=== PATIENT | male | born 1960 | race Caucasian/White ===

== ENCOUNTER 2016-09-06 10:56 | Inpatient (IN) ==
[2016-09-06] MEDS ORDERED: *HR* Midazolam HCl 2 MG/2 ML VIAL ONE ×3 (11:02→11:59)
--- NOTE | 2016-09-06 11:29 | History & Physical Report ---
Date of Encounter: 09/06/16 Time of Encounter: 11:29 24 Hour HP Update - Instructions Instructions: If the History and Physical is less than 30 days old and was completed prior to A.M. admission and or procedure and has NOT been updated on calendar day of procedure please complete this update prior to performing procedure. - Update Patient reports changes in Medical Condition: No Changes in examination, assessment, or condition: No Changes in Medication: No Preop tests/diagnostics Reviewed: Yes Surgery Remains Indicated: Yes Consent for Planned Operative Procedure(s) Verified: Yes - Pre-Operative Checklist Preoperative Checklist Indicated: No Prophylactic Antibiotic Ordered: Yes Is VTE Prophylaxis Indicated?: Yes
[2016-09-06] MEDS ORDERED: Ringers Solution, Lactated 1,000 ML IVC SCH ×2 (11:30→15:37)
[2016-09-06] MEDS ORDERED: Vancomycin 1,500 MG in D5% in Water 250 ML IVPB ONE (11:30)
--- NOTE | 2016-09-06 11:33 | Anesthesia Evaluation PreOp ---
Date of Encounter: 09/06/16 Time of Encounter: 11:31 - Past History Planned Operation: R total knee revision Cardiac History: HTN, Hyperlipidemia Pulmonary History: Denies Any Significant HX RECREATION ENGINEER History: Denies Any Significant HX Other Medical History: Other (gout) Anesthesia History: No Prior Anesthetic Complications Alcohol Use: none Drug use: none Medications and Allergies Allopurinol [Zyloprim 300 MG] 300 mg PO DAILY 02/29/16 [History] Aripiprazole [Abilify] 10 mg PO DAILY 02/29/16 [History] Atorvastatin Calcium 80 mg PO DAILY 02/29/16 [History] Buspirone HCl [Buspar] 15 mg PO TID 02/29/16 [History] Cholecalciferol (D-3) [Vitamin D] 1,000 unit PO DAILY 02/29/16 [History] Duloxetine HCl [Cymbalta] 60 mg PO DAILY 02/29/16 [History] Fenofibrate Nanocrystallized [Tricor] 48 mg PO DAILY 02/29/16 [History] Gabapentin [Neurontin] 800 mg PO TID 02/29/16 [History] Lisinopril [Zestril] 40 mg PO DAILY 02/29/16 [History] Loratadine [Allergy Relief] 10 mg PO DAILY 02/29/16 [History] Melatonin 10 mg PO HS 02/29/16 [History] Metoprolol Tartrate [Lopressor] 50 mg PO BID 02/29/16 [History] Mirtazapine [Remeron] 30 mg PO HS 02/29/16 [History] Multivitamin [Multi-Day Vitamins] 1 tab PO DAILY 02/29/16 [History] OxyCODONE Immed Rel [Roxicodone 5 MG] 5 mg PO Q6HR PRN #40 tablet 02/29/16 [Rx] OxyCODONE/APAP 5/325 [Percocet 5/325 MG] 1 each PO Q6HR PRN 02/29/16 [History] Vancomycin/0.9 % Sod Chloride [Vanco 1.5 gm/500 ml-0.9% NaCl] 1.5 gm IV Q12H 30 Days 02/29/16 [Rx] amLODIPine [Norvasc] 5 mg PO DAILY 02/29/16 [History] Allergies No Known Allergies Allergy (Verified 02/29/16 10:09) - Meds/Allergy Pre-op Review Medications Reviewed: Yes Allergies Reviewed: Yes Beta Blockers on Current Med List: Yes If Beta Blockers taken, Date/Time (Last Dose taken): 09-06-16 metoprolol 7:30 Anesthesia Results - Labs 09-04-16 Labs [facility] WBC 10.4 Hgb 12.9 Hct 39.5 Plt 371 INR 1.08 PT 11.7 PTT 28.5 Na 142 K 4.3 Cl 104 CO2 27.5 Glucose 110 Cr 1.03 Ca 9.7 - Imaging EKG: report reviewed, image reviewed (SR) Anesthesia Exam Weight: 102 kg NPO (# of Hours): >> 8 hrs - HEENT Pupil (Motor): Pupils equal, EOMI Mallampati: II Teeth: Normal Oral Opening: Greater than 3 - RECREATION ENGINEER LOC: Oriented RECREATION ENGINEER Motor: Normal RUE, Normal LUE, Normal RLE, Normal LLE, Normal Face - Cardiac Rhythm: Regular Murmur: None - Pulmonary Breath Sounds: bilateral Clear Respiratory Effort: Symmetrical Anesthesia Assess/Plan ASA Score: 3 Modified Marjorie Scale for Level of Consciousness: Cooperative, oriented, and tranquil Anesthetic Plan: General, Regional Monitoring Plan: Standard Monitors Recovery Plan: PACU
[2016-09-06] MEDS ORDERED: Ondansetron 4 MG/2 ML VIAL ONE (11:36)
[2016-09-06] MEDS ORDERED: *HR* Propofol 200 MG/20 ML VIAL IVP ONE (11:36)
[2016-09-06] MEDS ORDERED: Lidocaine -MPF 2% 2 ML VIAL ONE (11:36)
[2016-09-06] MEDS ORDERED: *HR* FentaNYL (PF) 100 MCG/2 ML VIAL ONE ×2 (11:36→11:59)
[2016-09-06] MEDS ORDERED: Dexamethasone 4 MG/ML VIAL ONE (11:36)
[2016-09-06] MEDS ORDERED: *HR* Succinylcholine 200 MG/10 ML VIAL IVP ONE (11:36)
[2016-09-06] MEDS ORDERED: *HR* Rocuronium Bromide 50 MG/5 ML VIAL ONE (11:36)
[2016-09-06] MEDS ORDERED: ROPIVACAINE HCL/PF 0.5% 30 ML VIAL ONE (11:56)
--- NOTE | 2016-09-06 12:34 | Discharge Summary ---
Date of Encounter: 09/09/16 Time of Encounter: 06:36 - Discharge Diagnosis (1) Postoperative stiffness of total knee replacement Priority: Primary Status: Acute Qualifiers: Encounter type: subsequent encounter Qualified Code(s): T84.89XD - Other specified complication of internal orthopedic prosthetic devices, implants and grafts, subsequent encounter; M25.669 - Stiffness of unspecified knee, not elsewhere classified; Z96.659 - Presence of unspecified artificial knee joint (2) Hypertension Priority: Secondary Status: Chronic Qualifiers: Hypertension type: unspecified secondary hypertension Qualified Code(s): I15.9 - Secondary hypertension, unspecified; I15 - Secondary hypertension (3) High cholesterol Priority: Secondary Status: Acute (4) Acute blood loss anemia Priority: Primary Status: Acute - Discharge Medications Prescriptions: Doxycycline 100 mg PO BID #14 capsule Home Medications: Allopurinol [Zyloprim 300 MG] 300 mg PO DAILY 02/29/16 [History] Cholecalciferol (D-3) [Vitamin D] 1,000 unit PO DAILY 02/29/16 [History] Duloxetine HCl [Cymbalta] 60 mg PO BID 02/29/16 [History] Gabapentin [Neurontin] 800 mg PO TID 02/29/16 [History] Lisinopril [Zestril] 40 mg PO DAILY 02/29/16 [History] Loratadine [Allergy Relief] 10 mg PO DAILY 02/29/16 [History] Melatonin 10 mg PO HS 02/29/16 [History] Metoprolol Tartrate [Lopressor] 50 mg PO BID 02/29/16 [History] Mirtazapine [Remeron] 30 mg PO HS 02/29/16 [History] Multivitamin [Multi-Day Vitamins] 1 tab PO DAILY 02/29/16 [History] amLODIPine [Norvasc] 5 mg PO DAILY 02/29/16 [History] Aspirin Enteric Coated [Aspirin EC] 325 mg PO BID #20 tablet.dr 09/06/16 [Rx] Bupropion HCl [Wellbutrin Xl] 300 mg PO DAILY 09/06/16 [History] Buspirone HCl [Buspar] 20 mg PO TID 09/06/16 [History] Naproxen [Naprosyn] 500 mg PO BID 09/06/16 [History] OxyCODONE Immed Rel [Roxicodone 5 MG] 5 - 10 mg PO Q6HR PRN #40 tablet 09/06/16 [Rx] Simvastatin [Zocor] 20 mg PO HS 09/06/16 [History] Doxycycline 100 mg PO BID #14 capsule 09/09/16 [Rx] Allergies/Adverse Reactions: Allergies No Known Allergies Allergy (Verified 02/29/16 10:09) Primary care physician: Nilay Pacheco CNP - Patient Status Disposition: Home, Self-Care Condition: Good Functional capacity at discharge: uses cane/walker Overall status at discharge: patient is progressing back to baseline - Discharge Instructions Follow Up With: Nilay Pacheco CNP [Primary Care Provider] - - Hospital Course Hospital course: Mr. Costello is a 55 year old male - Time Spent with Patient Total time spent providing and/or coordinating discharge services:
[2016-09-06] MEDS ORDERED: EPHEDrine 50 MG/ML VIAL ONE (13:01)
[2016-09-06] MEDS ORDERED: *HR* Promethazine 25 MG/ML VIAL IVP PRN (13:29)
[2016-09-06] MEDS ORDERED: *HR* HYDROmorphone (PF) 1 MG/ML SYRINGE IVP PRN (13:29)
--- NOTE | 2016-09-06 14:28 | Orthopedic Operative Note ---
Date of procedure: 09/06/16 Pre-op diagnosis: Stiff right total knee Post-op diagnosis: same Procedure: Procedure: Right revision total knee Estimated blood loss: 500 mL Hardware: Metal and polyethylene replacement. Biomet SS K 65 left femur 16 x 120 stem, 71 stem tibia, [id number] stem. 14 constrained Griselda Exam Under anesthesia: Incision healed, 60 degree flexion contracture flexion to 90 degrees Procedural Notes: Extensive scar tissue Operative procedure: The patient was brought to the operating room and placed on the operating room table. After general anesthesia was administered the operative knee was examined. Findings were noted in the exam under anesthesia. The operative extremity was prepped and draped in sterile surgical fashion. The patient received IV antibiotics prior to skin incision. A standard midline incision was made centered over the patella through the old incision. The incision was made through the skin and subcutaneous tissue. A medial parapatellar tendon approach was performed. Care was taken to preserve tissue along the medial aspect of the patella. And to protect the patella tendon. The deep MCL was released off the medial tibia. The patient had no evidence of purulent material cultures were obtained Gram stain was negative for bacteria. Patient had extensive scarring and extensive debridement and excision of scar tissue and synovium was performed. The knee was brought into flexion the poly-was removed. The interface between the patient's femoral component and distal femur were disrupted with a osteotome and oscillating saw. Femoral component was removed removed without significant bone loss. Attention was then turned to the tibial component. The same technique was used to remove the tibial component by disrupting the interface between the patient's tibial component and the patients proximal tibia. The tibial component was removed without significant bone loss. The tibia was reamed up to a 14 x 1 20 and recut 2 mm. It was sized to a 65 prepared with the box cut. Trial had good fixation and fixation. The femur was reamed up to a 16 x 1 20 distal cut was made in 6 degrees of valgus cutting guide was seated anterior cut was made followed posterior condylar cuts spelled by chamfer cuts, finishing block was seated and box cuts were made. Patient had full extension no varus valgus instability with a 14 constrained Griselda. Patella tracks centrally. The trial components were removed. The knee sat for 2 minutes with a Betadine saline solution. It was irrigated out with 2 L of pulse irrigation. The components were assembled on the back table, the tibia cemented first followed by the femur. The 14 constrained liner was seated and secure. The knee was brought to full extension while the cement hardened. After the cement hardened the knee was irrigated out again. The extensor mechanism was closed with a running #2 Fiberwire suture and a running #2 PDS suture. The deep tissue was irrigated and closed deep with #1 PDS suture superficially with 0 PDS suture. The skin was closed with skin afsaneh. The patient was placed in a sterile dressing and postoperative brace. They were extubated and transferred to recovery room in stable condition. Anesthesia: GETA Surgeon: Reji Holden Condition: stable Disposition: PACU
--- NOTE | 2016-09-06 14:54 | Anesthesia Evaluation Post Op ---
Date of Encounter: 09/06/16 Time of Encounter: 14:54 - Vital Signs Vital Signs: Last Vital Signs Temp 99.1 F 09/06/16 11:38 Pulse 81 09/06/16 12:13 Resp 18 09/06/16 12:13 BP 131/84 09/06/16 12:13 Pulse Ox 96 09/06/16 12:13 - Lungs Lungs: Clear Ascult./Percussion - Airway Airway: Non-obstructed - Cardiovascular Regular Rate - Mental Status Mental Status: Alert & Oriented, Answers Appropriately - Pain Pain Scale: 3 - Nausea Vomiting Nausea Vomiting: Not Present - Hydration Hydration: Ice chips - Discharge PostOp Status: Transfer Patient to floor
[2016-09-06 15:06] LABS: Hematocrit 35.8 % (37.5-50.1); Hemoglobin 11.2 g/dL (12.9-16.9)
[2016-09-06] MEDS ORDERED: Temazepam 15 MG CAPSULE PO PRN (15:37)
[2016-09-06] MEDS ORDERED: Naloxone 0.4 MG/ML INJ IVP PRN (15:37)
[2016-09-06] MEDS ORDERED: Sennosides 8.6 MG TABLET PO PRN (15:37)
[2016-09-06] MEDS ORDERED: Ondansetron 4 MG/2 ML VIAL IVP PRN (15:37)
[2016-09-06] MEDS ORDERED: *HR* OxyCODONE Immed Rel 5 MG TABLET PO PRN (15:37)
[2016-09-06] MEDS ORDERED: MOM Conc 10 ML UD.LIQ PO PRN (15:37)
[2016-09-06] MEDS: *HR* OxyCODONE Immed Rel 5 MG TABLET PO PRN ×2 (16:31→22:18)
[2016-09-06] MEDS: *HR* Enoxaparin 30 MG/0.3 ML SYRINGE SQ SCH (17:06)
[2016-09-06] MEDS ORDERED: Vancomycin 1,500 MG in D5% in Water 250 ML IVPB SCH (17:40)
[2016-09-06] MEDS ORDERED: *HR* Enoxaparin 30 MG/0.3 ML SYRINGE SQ SCH (18:00)
[2016-09-06] MEDS: Melatonin 3 MG TABLET PO SCH (21:25)
[2016-09-06] MEDS: Mirtazapine 15 MG TABLET PO SCH (21:26)
[2016-09-06] MEDS: Gabapentin 400 MG CAPSULE PO SCH (21:26)
[2016-09-07] MEDS: *HR* HYDROmorphone (PF) 1 MG/ML SYRINGE IVP PRN ×4 (00:11→18:40)
[2016-09-07] MEDS ORDERED: Vancomycin 1,000 MG VIAL IVPB SCH (00:30)
[2016-09-07 05:02] LABS: Hematocrit 30.4 % (37.5-50.1); Hemoglobin 9.7 g/dL (12.9-16.9)
[2016-09-07 05:19] LABS: BUN/Creatinine Ratio 16 (6-26); Blood Urea Nitrogen 16 mg/dL (8-26); Calcium 9.1 mg/dL (8.6-10.8); Carbon Dioxide 26 mEq/L (19-29); Chloride 102 mEq/L (98-109); Glucose 134 mg/dL (70-99); Osmolality,Calculated 283 (280-300); Sodium 135 mEq/L (136-145); eGFR For African Americans > 60 (> 60); eGFR For Non-African Americans > 60 (> 60)
[2016-09-07] MEDS: *HR* Enoxaparin 30 MG/0.3 ML SYRINGE SQ SCH ×2 (05:42→18:41)
--- NOTE | 2016-09-07 06:56 | Orthopedics Progress Note ---
Date of Encounter: 09/07/16 Time of Encounter: 06:56 - Assessment and Plan (1) Postoperative stiffness of total knee replacement Current Visit: Yes Status: Acute Qualifiers: Encounter type: subsequent encounter Qualified Code(s): T84.89XD - Other specified complication of internal orthopedic prosthetic devices, implants and grafts, subsequent encounter; M25.669 - Stiffness of unspecified knee, not elsewhere classified; Z96.659 - Presence of unspecified artificial knee joint (2) Hypertension Current Visit: Yes Status: Chronic Qualifiers: Hypertension type: unspecified secondary hypertension Qualified Code(s): I15.9 - Secondary hypertension, unspecified; I15 - Secondary hypertension (3) High cholesterol Current Visit: Yes Status: Acute Subjective Interval history: Patient was seen this morning doing well without complaints. Afebrile vital signs stable. Operative extremity: Neurovascularly intact Dressing clean dry and intact Calves nontender Assessment and plan: Continue with postoperative care hematocrit 30 Objective Vital signs: Vital Signs Temp Pulse Resp BP Pulse Ox 09/07/16 04:14 98.1 F 91 16 104/67 95 09/06/16 23:49 98.1 F 108 16 131/77 97 09/06/16 20:07 98.3 F 112 16 130/75 96 09/06/16 19:27 98.3 F 115 16 131/79 95 09/06/16 18:04 98 F 105 16 121/81 99 09/06/16 17:09 98.1 F 93 16 128/77 95 09/06/16 16:07 97.9 F 91 16 144/88 93 09/06/16 15:38 98 F 85 16 119/81 96 09/06/16 15:09 97.3 F L 91 14 131/79 98 09/06/16 14:59 97.3 F L 86 16 132/91 96 09/06/16 14:49 86 16 119/92 97 09/06/16 14:39 91 16 137/88 96 09/06/16 14:29 98.3 F 90 14 142/93 98 09/06/16 12:13 81 18 131/84 96 09/06/16 11:38 99.1 F 78 18 124/86 94 Intake and Output 09/06/16 09/06/16 09/07/16 15:59 23:59 07:59 Intake Total 240 / 240 240 / 240 1250 / 1250 Output Total 500 / 500 1250 / 1250 850 / 850 Balance -260 / -260 -1010 / -1010 400 / 400 Intake: IV Fluids 250 / 250 Vancocin 1,500 MG In 250 / 250 Dextrose 5% 250 ML @ 166. 67 mls/hr IVPB Q12H [facility] Rx#:[id number] Oral 240 / 240 1000 / 1000 Tube Feeding 240 / 240 Output: Urine 1250 / 1250 850 / 850 Estimated Blood Loss 500 / 500 Other: Meal Dinner Percent of Meal Consumed 100% # Voids 1 1 Weight 102.058 kg - Labs CBC & BMP: 09/07/16 04:42 09/07/16 04:42 Labs: Abnormal lab results Hgb 9.7 g/dL (12.9-16.9) L D 09/07/16 04:42 Hct 30.4 % (37.5-50.1) L 09/07/16 04:42 Sodium 135 mEq/L (136-145) L 09/07/16 04:42 Glucose 134 mg/dL (70-99) H 09/07/16 04:42 - VTE Documentation of Mechanical Device: Venous foot pump, device Consult Discharge Plan - Plan Referrals: Nilay Pacheco, BUSINESS DEVELOPMENT INTERN [Primary Care Provider] -
[2016-09-07] MEDS: amLODIPine 5 MG TABLET PO SCH (08:00)
[2016-09-07] MEDS: ARIPiprazole 10 MG TABLET PO SCH (08:01)
[2016-09-07] MEDS: Gabapentin 400 MG CAPSULE PO SCH ×3 (08:01→20:50)
[2016-09-07] MEDS: Fenofibrate 54 MG TABLET PO SCH (08:01)
[2016-09-07] MEDS: Cholecalciferol (D-3) 1,000 UNIT TABLET PO SCH (08:02)
[2016-09-07] MEDS: Loratadine 10 MG TABLET PO SCH (08:02)
[2016-09-07] MEDS: Lisinopril 20 MG TABLET PO SCH (08:02)
[2016-09-07] MEDS: Multivit/Ca/Min/Fe/FA 1 TAB TABLET PO SCH (08:02)
[2016-09-07] MEDS: Vancomycin 1,500 MG in D5% in Water 250 ML IVPB SCH ×2 (11:44)
[2016-09-07] MEDS: Mirtazapine 15 MG TABLET PO SCH (20:50)
[2016-09-07] MEDS: Melatonin 3 MG TABLET PO SCH (20:50)
[2016-09-08] MEDS: *HR* OxyCODONE Immed Rel 5 MG TABLET PO PRN ×4 (01:28→19:43)
[2016-09-08] MEDS: *HR* HYDROmorphone (PF) 1 MG/ML SYRINGE IVP PRN ×3 (03:52→23:34)
[2016-09-08] MEDS: Vancomycin 1,000 MG in D5% in Water 250 ML IVPB SCH ×2 (05:57→17:34)
[2016-09-08] MEDS: *HR* Enoxaparin 30 MG/0.3 ML SYRINGE SQ SCH ×2 (05:57→17:35)
--- NOTE | 2016-09-08 06:34 | Orthopedics Progress Note ---
Date of Encounter: 09/08/16 Time of Encounter: 06:33 - Assessment and Plan (1) Postoperative stiffness of total knee replacement Current Visit: Yes Status: Acute Qualifiers: Encounter type: subsequent encounter Qualified Code(s): T84.89XD - Other specified complication of internal orthopedic prosthetic devices, implants and grafts, subsequent encounter; M25.669 - Stiffness of unspecified knee, not elsewhere classified; Z96.659 - Presence of unspecified artificial knee joint (2) Hypertension Current Visit: Yes Status: Chronic Qualifiers: Hypertension type: unspecified secondary hypertension Qualified Code(s): I15.9 - Secondary hypertension, unspecified; I15 - Secondary hypertension (3) High cholesterol Current Visit: Yes Status: Acute Subjective Interval history: Patient was seen this morning doing well without complaints. Afebrile vital signs stable. Operative extremity: Neurovascularly intact Dressing clean dry and intact Calves nontender Assessment and plan: Continue with postoperative care Objective Vital signs: Vital Signs Temp Pulse Resp BP Pulse Ox 09/08/16 03:53 98.2 F 95 19 112/76 92 09/07/16 23:58 98.0 F 85 18 95/60 95 09/07/16 21:07 98.4 F 90 18 97/67 94 09/07/16 14:52 98.2 F 92 16 101/65 94 09/07/16 11:45 98.1 F 85 14 101/64 91 09/07/16 08:46 97.9 F 90 18 100/65 95 Intake and Output 09/07/16 09/07/16 09/08/16 15:59 23:59 07:59 Intake Total 980 / 980 1070 / 1070 Output Total 550 / 550 400 / 400 270 / 270 Balance 430 / 430 670 / 670 -270 / -270 Intake: IV Fluids 250 / 250 Vancocin 1,500 MG In 250 / 250 Dextrose 5% 250 ML @ 166. 67 mls/hr IVPB Q12H [facility] Rx#:[id number] Oral 980 / 980 820 / 820 Output: Urine 550 / 550 400 / 400 270 / 270 Other: Meal Lunch Dinner Percent of Meal Consumed 100% 95% - Labs CBC & BMP: 09/07/16 04:42 09/07/16 04:42 Labs: Abnormal lab results Hgb 9.7 g/dL (12.9-16.9) L D 09/07/16 04:42 Hct 30.4 % (37.5-50.1) L 09/07/16 04:42 Sodium 135 mEq/L (136-145) L 09/07/16 04:42 Glucose 134 mg/dL (70-99) H 09/07/16 04:42 Vancomycin Trough 22.6 mcg/mL (10-20) H* 09/07/16 21:44 - VTE Documentation of Mechanical Device: Venous foot pump, device Consult Discharge Plan - Plan Referrals: Nilay Pacheco, KNIFE SHARPENER [Primary Care Provider] -
[2016-09-08] MEDS: Loratadine 10 MG TABLET PO SCH (07:53)
[2016-09-08] MEDS: ARIPiprazole 10 MG TABLET PO SCH (07:53)
[2016-09-08] MEDS: amLODIPine 5 MG TABLET PO SCH (07:54)
[2016-09-08] MEDS: Gabapentin 400 MG CAPSULE PO SCH ×3 (07:54→21:04)
[2016-09-08] MEDS: Multivit/Ca/Min/Fe/FA 1 TAB TABLET PO SCH (07:55)
[2016-09-08] MEDS: Cholecalciferol (D-3) 1,000 UNIT TABLET PO SCH (07:55)
[2016-09-08] MEDS: Fenofibrate 54 MG TABLET PO SCH (07:55)
[2016-09-08] MEDS: Lisinopril 20 MG TABLET PO SCH (07:55)
[2016-09-08 09:22] LABS: Hematocrit 29.2 % (37.5-50.1); Hemoglobin 9.2 g/dL (12.9-16.9)
[2016-09-08 09:32] LABS: BUN/Creatinine Ratio 15 (6-26); Blood Urea Nitrogen 15 mg/dL (8-26); Calcium 8.9 mg/dL (8.6-10.8); Carbon Dioxide 26 mEq/L (19-29); Chloride 102 mEq/L (98-109); Glucose 120 mg/dL (70-99); Osmolality,Calculated 286 (280-300); Potassium 3.6 mEq/L (3.5-4.5); Sodium 137 mEq/L (136-145); eGFR For African Americans > 60 (> 60); eGFR For Non-African Americans > 60 (> 60)
[2016-09-08] MEDS: Melatonin 3 MG TABLET PO SCH (21:04)
[2016-09-08] MEDS: Mirtazapine 15 MG TABLET PO SCH (21:04)
[2016-09-09] MEDS: Vancomycin 1,000 MG in D5% in Water 250 ML IVPB SCH (06:04)
[2016-09-09] MEDS: *HR* Enoxaparin 30 MG/0.3 ML SYRINGE SQ SCH (06:06)
[2016-09-09] MEDS: *HR* OxyCODONE Immed Rel 5 MG TABLET PO PRN (06:07)
--- NOTE | 2016-09-09 06:39 | Orthopedics Progress Note ---
Date of Encounter: 09/09/16 Time of Encounter: 06:38 - Assessment and Plan (1) Postoperative stiffness of total knee replacement Current Visit: Yes Status: Acute Qualifiers: Encounter type: subsequent encounter Qualified Code(s): T84.89XD - Other specified complication of internal orthopedic prosthetic devices, implants and grafts, subsequent encounter; M25.669 - Stiffness of unspecified knee, not elsewhere classified; Z96.659 - Presence of unspecified artificial knee joint (2) Hypertension Current Visit: Yes Status: Chronic Qualifiers: Hypertension type: unspecified secondary hypertension Qualified Code(s): I15.9 - Secondary hypertension, unspecified; I15 - Secondary hypertension (3) High cholesterol Current Visit: Yes Status: Acute (4) Acute blood loss anemia Current Visit: Yes Status: Acute Subjective Interval history: Patient was seen this morning doing well without complaints. Afebrile vital signs stable. Operative extremity: Neurovascularly intact Dressing clean dry and intact Calves nontender Assessment and plan: Continue with postoperative care discharged today Objective Vital signs: Vital Signs Temp Pulse Resp BP Pulse Ox 09/08/16 23:36 98.2 F 97 16 128/83 95 09/08/16 21:30 98.9 F 104 16 124/73 94 09/08/16 15:00 98.4 F 101 18 126/81 95 09/08/16 10:26 98.4 F 93 16 103/78 95 09/08/16 06:43 98.1 F 98 16 108/79 94 Intake and Output 09/08/16 09/08/16 09/09/16 15:59 23:59 07:59 Intake Total 840 / 840 1450 / 1450 450 / 450 Output Total 1275 / 1275 1225 / 1225 400 / 400 Balance -435 / -435 225 / 225 50 / 50 Intake: IV Fluids 250 / 250 Vancocin 1,000 MG In 250 / 250 Dextrose 5% 250 ML @ 166. 667 mls/hr IVPB Q12HR [facility] Rx#:[id number] Oral 840 / 840 1200 / 1200 450 / 450 Output: Urine 1275 / 1275 1225 / 1225 400 / 400 - Labs CBC & BMP: 09/08/16 09:11 09/08/16 09:11 Labs: Abnormal lab results Hgb 9.2 g/dL (12.9-16.9) L 09/08/16 09:11 Hct 29.2 % (37.5-50.1) L 09/08/16 09:11 Glucose 120 mg/dL (70-99) H 09/08/16 09:11 - VTE Documentation of Mechanical Device: Venous foot pump, device Consult Discharge Plan - Plan Referrals: Nilay Pacheco, IT SALES EXECUTIVE [Primary Care Provider] - Prescriptions: Doxycycline 100 mg PO BID #14 capsule
[2016-09-09 07:15] VITALS: BP 119/80
[2016-09-09] MEDS: ARIPiprazole 10 MG TABLET PO SCH (07:27)
[2016-09-09] MEDS: Lisinopril 20 MG TABLET PO SCH (07:27)
[2016-09-09] MEDS: Fenofibrate 54 MG TABLET PO SCH (07:27)
[2016-09-09] MEDS: amLODIPine 5 MG TABLET PO SCH (07:28)
[2016-09-09] MEDS: Multivit/Ca/Min/Fe/FA 1 TAB TABLET PO SCH (07:28)
[2016-09-09] MEDS: Gabapentin 400 MG CAPSULE PO SCH (07:28)
[2016-09-09] MEDS: Loratadine 10 MG TABLET PO SCH (07:29)
[2016-09-09] MEDS ORDERED: Aminoglycoside Consult 1 EACH MC ONE (12:29)
== END 2016-09-09 12:30 | disposition home or self-care (01) | DRG 468 ==
LOC: SAMDAY 10:56 → 3NENU 15:40
PROVIDERS: ADMIT Orthopaedic Surgery; ATTEND Orthopaedic Surgery